=== PATIENT | female | born 1950 | race Caucasian/White ===

== ENCOUNTER → 2017-09-14 | Outpatient (CLI) | payer OTHER ==
[~2017-09-14] MED LIST: ATORVASTATIN CA40 MG PO; AUGMENTIN 875-1 EACH PO; CIPRO250 M2 PO; CIPRO500 M1 PO; DARVOCET-N 1001 EACH PO; DOXYCYCLINE 10100 MG PO; DUONEB 2.5-0.5 M3 ML INH; FIORICET 50-321 EACH PO; FLEXERIL PO; KEFLEX500 MG PO; LEVAQUIN 500 M500 M2 PO; LEVAQUIN 500 M500 MG PO; LEVAQUIN 750 M750 MG PO; LIPITOR10 MG PO; LIPITOR20 MG PO; NEURONTIN 300300 M1 PO; NEURONTIN 300300 MG PO; NORFLEX100 MG PO; PERCOCET 5-3251 EACH PO; PHENAZOPYRIDIN200 M2 PO; PHENERGAN 25 MG25 M1 PO; PHENERGAN 25 MG25 MG PO; PREDNISONE 10 M10 MG PO; PREDNISONE 20 M20 M1 PO; PRENATAL PO; PREVACID30 M1 PO; PREVACID30 MG PO; PROAIR HFA8.5 GM IH; ROBAXIN 750 MG750 M1 PO; SERTRALINE HCL50 MG PO; SIMVASTATIN; VENTOLIN HFA 1818 GM INH; VITAMIN B-12500 MCG PO; VITAMIN C + RO500 MG PO; XANAX XR1 MG PO; ZANAFLEX4 MG PO; ZOFRAN ODT4 MG SUBLING; ZOFRAN4 MG PO; ZOLOFT; ZPAK PO; [UNRECOGNIZED DRUG - OTHER]
[2017-09-14 16:31] LABS: ABSOLUTE BASOPHILS 0.1 thou/uL (0.0-0.2); ABSOLUTE EOSINOPHILS 0.4 thou/uL (0.0-0.7); ABSOLUTE MONOCYTES 0.7 thou/uL (0.0-1.2); ABSOLUTE NEUTROPHILS 7.9 thou/uL (1.6-8.1); BASOPHILS 0.5 %; EOSINOPHILS 3.2 %; HEMATOCRIT 43.1 % (37.0-47.0); LYMPHOCYTES 24.7 %; MCH 28.7 pg (26.0-34.0); MCHC 32.4 g/dL (28.0-37.0); MCV 88.6 fL (80.0-100.0); MONOCYTES 5.9 %; NUCLEATED RBCS 0 /100WBC; PLATELET COUNT* 282 thou/uL (150-400); POLYS 65.7 %; RBC 4.86 mil/uL (4.20-5.00); RDW-CV 14.2 % (10.5-14.5); WBC 12.1 thou/uL (4.0-11.0)
[2017-09-14 16:41] LABS: ALBUMIN 3.6 g/dL (3.4-5.0); CALCIUM 9.3 mg/dL (8.5-10.1); CREATININE 1.1 mg/dL (0.6-1.3); POTASSIUM 4.3 mmol/L (3.5-5.1); TOTAL BILIRUBIN 0.4 mg/dL (<0.1-1.0); TOTAL PROTEIN 7.3 g/dL (6.4-8.2)
--- NOTE | 2017-09-14 17:48 | EKG ---
[place] [address] ELECTROCARDIOGRAM REPORT Name: MIRZA NASCIMENTO Room: [facility]#: [id number] Admission: 09/14/17 Attend Phys: Angeli Thomas MD Discharge: Date of : 52 Report #: [id number] THIS REPORT FOR: //name// [facility] Test Date: 2017-09-14 Test Time: 16:16:10 Pat Name: MIRZA NASCIMENTO Department: Room: Gender: F Conformal Pad Former: : 1950 Requested By: Angeli Thomas Order Number: [id number] MD: Chapito Benitez Measurements Intervals [place] Rate: 91 P: 55 CO: 126 QRS: 37 QRSD: 92 T: 28 QT: 352 QTc: 434 Interpretive Statements Sinus arrhythmia Ventricular premature complex Compared to ECG 01/15/2016 13:05:06 Ventricular premature complex(es) now present Sinus tachycardia no longer present Electronically Signed On 09-14-2017 17:48:17 INSPECTOR SET UP AND LAY OUT by Chapito Benitez [email or web address] <ELECTRONICALLY SIGNED> By: Chapito Benitez MD, [facility] 09/14/17 1748 1616 15 Chapito Benitez MD, FAC /EPI
== END ==
LOC: M.CRD 16:02
PROVIDERS: Obstetrics & Gynecology Gynecologic Oncology
DX: Z01.818 Encounter for other preprocedural examination (principal); K44.9 Diaphragmatic hernia without obstruction or gangrene; I49.8 Other specified cardiac arrhythmias

== ENCOUNTER 2017-11-28 13:17 | Emergency (ER) | payer OTHER ==
[~2017-11-28] VITALS: Ht 157.5 cm; Wt 120.2 kg
[~2017-11-28 13:17] MED LIST changes: -LEVAQUIN 500 M500 MG PO; -LEVAQUIN 750 M750 MG PO; -PREDNISONE 20 M20 M1 PO; -VENTOLIN HFA 1818 GM INH; -ZPAK PO
[2017-11-28] MEDS ORDERED: PREDNISONE 20 M20 M1 PO (15:20)
[2017-11-28] MEDS ORDERED: ZPAK PO (15:20)
[2017-11-28] MEDS ORDERED: VENTOLIN HFA 1818 GM INH (15:20)
[2017-11-28] MEDS ORDERED: LEVAQUIN 500 M500 MG PO (15:23)
[2017-11-28 15:32] VITALS: BP 110/65
== END 2017-11-28 15:34 | disposition home or self-care (01) ==
LOC: M.ERS 13:17
DX: J40 Bronchitis, not specified as acute or chronic (principal); F41.9 Anxiety disorder, unspecified; F32.9 Major depressive disorder, single episode, unspecified; E78.5 Hyperlipidemia, unspecified; K21.9 Gastro-esophageal reflux disease without esophagitis; Z90.710 Acquired absence of both cervix and uterus; Z88.1 Allergy status to other antibiotic agents; Z87.891 Personal history of nicotine dependence

== ENCOUNTER 2017-12-01 15:54 | Inpatient (IN) | payer OTHER ==
[~2017-12-01] VITALS: Ht 154.9 cm; Wt 103.0 kg
[~2017-12-01 15:54] MED LIST changes: +LEVAQUIN 500 M500 MG PO; +PREDNISONE 20 M20 M1 PO; +VENTOLIN HFA 1818 GM INH; +ZPAK PO
[2017-12-01 16:06] VITALS: BP 166/94
[2017-12-01 16:42] LABS: ABSOLUTE LYMPHOCYTES 1.3 thou/uL (0.8-5.3); ABSOLUTE MONOCYTES 0.2 thou/uL (0.0-1.2); ABSOLUTE NEUTROPHILS 5.5 thou/uL (1.6-8.1); BASOPHILS 0.2 %; HEMATOCRIT 45.4 % (37.0-47.0); HEMOGLOBIN 15.3 gm/dL (12.0-15.0); LYMPHOCYTES 18.1 %; MCHC 33.6 g/dL (28.0-37.0); MCV 86.5 fL (80.0-100.0); MONOCYTES 2.4 %; NUCLEATED RBCS 0 /100WBC; PLATELET COUNT* 277 thou/uL (150-400); POLYS 79.3 %; RBC 5.26 mil/uL (4.20-5.00); RDW-CV 14.1 % (10.5-14.5); WBC 6.9 thou/uL (4.0-11.0)
[2017-12-01 16:51] LABS: APTT 25.9 Seconds (25.0-31.3); PROTIME 10.1 Seconds (9.20-11.50)
[2017-12-01 16:52] LABS: ANION GAP 8 mmol/L (7-16); BUN 16 mg/dL (7-18); CALCIUM 9.1 mg/dL (8.5-10.1); CHLORIDE 104 mmol/L (98-107); CO2 33 mmol/L (21-32); CREATININE 1.2 mg/dL (0.6-1.3); GLUCOSE 155 mg/dL (70-99); POTASSIUM 3.5 mmol/L (3.5-5.1); SODIUM 145 mmol/L (136-145)
[2017-12-01 17:02] LABS: ALBUMIN 3.5 g/dL (3.4-5.0); ALKALINE PHOSPHATASE 151 U/L (46-116); LIPASE 58 U/L (73-393); MAGNESIUM 2.2 mg/dL (1.8-2.4); NT-PRO BRAIN NAT PEPTIDE 551 pg/mL (<300); SGOT 21 U/L (15-37); SGPT 33 U/L (30-65); TOTAL BILIRUBIN 0.6 mg/dL (<0.1-1.0); TOTAL PROTEIN 7.6 g/dL (6.4-8.2); TROPONIN-I LEVEL <0.06 ng/mL (<0.06)
[2017-12-01 19:56] VITALS: BP 164/92
[2017-12-01 20:30] VITALS: BP 163/85
[2017-12-02 00:20] VITALS: BP 127/80
[2017-12-02 04:14] LABS: HEMATOCRIT 40.9 % (37.0-47.0); HEMOGLOBIN 13.7 gm/dL (12.0-15.0); MCH 28.9 pg (26.0-34.0); MCHC 33.5 g/dL (28.0-37.0); MCV 86.2 fL (80.0-100.0); MPV 8.2 fl. (7.2-11.1); RBC 4.75 mil/uL (4.20-5.00); RDW-CV 13.9 % (10.5-14.5); WBC 8.3 thou/uL (4.0-11.0)
[2017-12-02 04:37] LABS: CALCIUM 8.7 mg/dL (8.5-10.1); CREATININE 1.1 mg/dL (0.6-1.3); MAGNESIUM 2.3 mg/dL (1.8-2.4); POTASSIUM 3.7 mmol/L (3.5-5.1)
--- NOTE | 2017-12-02 05:15 | NUR ---
PATIENT ARRIVED TO UNIT AT 1945 FROM ER VIA CART. AMBULATED TO BED WITHOUT DIFFICULTY. ALERT AND ORIENTED. VITALS STABLE. RA. ORIENTED TO ROOM AND STAFF. PLACED ON 2L PER PATIENTS REQUEST. UP INDEPENDENTLY. EDUCATED ABOUT FALL PREVENTION. SKIN INTACT. NONPRODUCTIVE COUGH. HOURLY ROUNDS. NURSING WILL CONTINUE TO MONITOR.
[2017-12-02 08:54] VITALS: BP 139/76
[2017-12-02 16:00] VITALS: BP 119/64
--- NOTE | 2017-12-02 16:26 | NUR ---
DID NOT SEE PT.TODAY. ROOM DARK,FAN ON,ALKA PULLED ACROSS OPENING TO ROOM. PT.APPEARED TO BE SLEEPING. WILL SEE TOMORROW.
--- NOTE | 2017-12-02 16:32 | EKG ---
[place] [address] ELECTROCARDIOGRAM REPORT Name: MIRZA NASCIMENTO Room: [address] ADM IN [facility].#: [id number] Admission: 12/01/17 Attend Phys: Dwaine Stacy MD Discharge: Date of : 52 Report #: [id number] THIS REPORT FOR: //name// [facility] ED Test Date: 2017-12-01 Test Time: 16:23:37 Pat Name: MIRZA NASCIMENTO Department: Room: [facility] Gender: F Chair Mechanic: Joyce DOBBINS : 1950 Requested By: Aldair Fine Order Number: [id number] MD: Chapito Benitez Measurements Intervals [place] Rate: 79 P: 57 [place]: 131 QRS: 32 QRSD: 91 T: 19 QT: 393 QTc: 451 Interpretive Statements Sinus rhythm Baseline wander in lead(s) V2 Compared to ECG 09/14/2017 16:16:10 Sinus arrhythmia no longer present Ventricular premature complex(es) no longer present Electronically Signed On 12-02-2017 16:32:08 CDT by Chapito Benitez [email or web address] <ELECTRONICALLY SIGNED> By: Chapito Benitez MD, FAC 12/02/17 1632 1623 1623 Chapito Benitez MD, [facility] /EPI
--- NOTE | 2017-12-02 21:00 | NUR ---
ASSUMED CARES OF PT AT 0700. PT IN BED, BED IN LOW LOCKED POSITION, FALL PRECAUTIONS IN PLACE, CALL BUTTON AND PERSONAL ITEMS IN PT REACH. PT A&O X4, VSS ON 2L NC NEEDED FOR COMFORT. AFEBRILE, PERRLA, SKIN INTACT, HRRR PER AUSCULTATION, EXPIRATORY WHEEZES ON AUSCULTATION OF LUNGS. PT DENIES PAIN AT THIS TIME. UP INDEPENDENTLY. LAC IV PATENT TO FLUSH AND ABT TREATMENT. PT STATES SOLUMEDROL KEEPS HER AWAKE, DID NOT SLEEP WELL LAST NIGHT OR ABLE TO SLEEP THIS SHIFT. OCC. ANXIETY REPORTED. HOURLY ROUNDING COMPLETED. REPORT TO COTTAGE MASTER FOR CONTINUED CARES. PT PROGRESSING TOWARDS GOAL. NO COUGH NOTED THIS DAY SHIFT.
[2017-12-02 23:00] VITALS: BP 148/72
--- NOTE | 2017-12-03 04:57 | NUR ---
PATIENT HAS REMAINED ALERT AND ORIENTED X 4 THROUGHOUT THE SHIFT AND RESTING QUIETLY BUT NOT SLEEPING WELL ON HOURLY ROUNDS. PATIENT REPORTING POOR REST WITH SOLUMEDROL AND RT TREATMENTS. O2 ON AT 2L/MIN WITH SPOT SATS>92%. VITAL SIGNS STABLE. MEDS PER ORDERS. PATIENT REPORTING OVERALL FEELING BETTER. UP TO BR INDEPENDENTLY. CONTINUE TO MONITOR.
[2017-12-03 08:18] VITALS: BP 125/75
--- NOTE | 2017-12-03 11:07 | NUR ---
ASSUMED CARES OF PT AT 0700. PT IN BED, BED IN LOW LOCKED POSITION, FALL PRECAUTIONS IN PLACE, CALL BUTTON AND PERSONAL ITEMS IN PT REACH. PT A&O X4, UP INDEPENDENT, STABLE GAIT. HRRR PER AUSCULTATION, VSS ON 2L O2 NC FOR COMFORT PER PT REQUEST. PT DENIES PAIN AT THIS TIME. LUNGS ON AUSCULTATION CLEAR IN ALL LOBES EXCEPT [place] MILD WHEEZES HEARD. LAC IV PATENT TO FLUSH AND IV ABT/TOLERATED. CHEST XRAY SCHEDULED TODAY. PT COOPERATIVE, PLEASANT, TAKES MEDS WELL PO. HOURLY ROUNDING CONTINUES. WILL CONTINUE TO MONITOR PT PROGRESS AND STATUS. AFEBRILE, PERRLA, SKIN INTACT.
[2017-12-03 15:21] VITALS: BP 119/54
--- NOTE | 2017-12-03 15:45 | NUR ---
PT.UPSET. SHE SAID SHE RECEIVED A MESSAGE FROM SOMEONE THAT SAID THEY ARE AFFILIATED WITH THE HOSPITAL BUT SHE DID NOT UNDERSTAND WHO THEY WERE OR WHY THEY WOULD BE CALLING HER. LET CM LISTEN TO MESSAGE. CM COULD NOT UNDERSTAND NAME OF CO. SHE TRIED TO CALL THEM BACK BUT ARE CLOSED UNTIL WEDNESDAY. SHE SAID SHE LIVES WITH HER AND THEY TAKE CARE OF THEIR 2 Y.O.GRANDCHILD. NAY MOTHER DOES NOT LIVE WITH THEM SHE IS ON DRUGS. PT.SAID SHE IS JUST ALWAYS SCARED SOMEONE WILL TAKE THE BABY AWAY FROM THEM. SHE SAID SHE IS INDEPENDENT AT HOME. SHE AND SHARE CHORES. SHE DRIVES. SHE DOES NOT USE ANY DME. NO HX OF HH. SHE HOPES SHE DOES NOT NEED HOME O2 AT DISCHARGE.
--- NOTE | 2017-12-03 20:26 | NUR ---
BEDSIDE REPORT TO SPEECH AND HEARING CLINIC DIRECTOR FOR CONTINUED CARES. PT PROGRESSING TOWARDS GOAL. VSS ON RA, AFEBRILE. PT MAY D/C TO HOME TOMORROW. LEFT AC PATENT TO FLUSH/SALINE LOCKED. HOURLY ROUNDING AND ASSESSMENTS COMPLETED.
[2017-12-03 20:30] VITALS: BP 120/73
[2017-12-04 00:37] VITALS: BP 109/71
[2017-12-04] MEDS ORDERED: PREDNISONE 10 M10 MG PO (07:23)
[2017-12-04] MEDS ORDERED: LEVAQUIN 750 M750 MG PO (07:23)
[2017-12-04 08:00] VITALS: BP 154/77
--- NOTE | 2017-12-04 08:03 | NUR ---
ALERT AND ORIENTED X4. O2 SLEEP STUDY COMPLETED LAST NIGHT. O2 SAT ON ROOM AIR THIS AM 96%. SLIGHT WHEEZING NOTED IN LOWER LOBES. UP AD PETRA IN ROOM. DENIED NEED FOR PAIN MEDICATION. CONTINUES TO RECEIVE STERIODS AND ANTIBIODICS. CALL LIGHT WITHIN REACH.
[2017-12-04 13:02] VITALS: BP 154/77
--- NOTE | 2017-12-04 13:53 | NUR ---
ASSUMED CARE OF PATIENT AFTER MORNING REPORT. ALERT AND ORIENTED X4. ASSESSMENT COMPLETED AND CHARTED. VSS ON ROOM AIR. PATIENT HAS HAD NO COMPLAINTS OF NAUSEA AND PAIN THIS SHIFT. PATEINT HAS HAD SOME ANXIETY TODAY AND ASKED FOR XANAX, GIVEN WITH 0900 MEDS. PATEINT RECIEVED BRATHING TREATMENTS AND AOLUMEDROL ORDERED. DISCHARGED AT 1335. ALL PERSONAL BELONGINGS, PRESCRIPTIONS AND DISCHARGE INFORMATION SENT WITH PATIENT UPON DISCHARGE.
== END 2017-12-04 13:35 | disposition home or self-care (01) | DRG 189 ==
LOC: M.ERS 15:54 → M.ORTHSURG 17:19 → M.TBA-ER 17:19 → M.ORTHSURG 19:18
PROVIDERS: Family Medicine; ADMIT Internal Medicine
DX: J96.90 Respiratory failure, unspecified, unspecified whether with hypoxia or hypercapnia (principal); J44.1 Chronic obstructive pulmonary disease with (acute) exacerbation; J44.0 Chronic obstructive pulmonary disease with (acute) lower respiratory infection; J20.9 Acute bronchitis, unspecified; F32.9 Major depressive disorder, single episode, unspecified; M48.00 Spinal stenosis, site unspecified; J32.0 Chronic maxillary sinusitis; F41.9 Anxiety disorder, unspecified; E78.5 Hyperlipidemia, unspecified; K21.9 Gastro-esophageal reflux disease without esophagitis; Z90.710 Acquired absence of both cervix and uterus; Z88.2 Allergy status to sulfonamides; Z88.1 Allergy status to other antibiotic agents; Z88.8 Allergy status to other drugs, medicaments and biological substances; Z87.891 Personal history of nicotine dependence

== ENCOUNTER → 2018-02-17 | Outpatient (CLI) | payer OTHER ==
[~2018-02-17] MED LIST changes: +LEVAQUIN 750 M750 MG PO
== END ==
LOC: M.RAD 06:59
DX: Z12.31 Encounter for screening mammogram for malignant neoplasm of breast (principal)

== ENCOUNTER 2018-08-28 07:49 | Emergency (ER) | payer OTHER ==
[~2018-08-28] VITALS: Ht 154.9 cm; Wt 104.3 kg
[2018-08-28] MEDS ORDERED: [UNRECOGNIZED DRUG - REMARK] (08:05)
[2018-08-28] MEDS ORDERED: KEFLEX500 M1 PO (08:22)
[2018-08-28 08:29] VITALS: BP 130/61
== END 2018-08-28 08:31 | disposition home or self-care (01) ==
LOC: M.ERS 07:49
DX: L03.116 Cellulitis of left lower limb (principal); M48.00 Spinal stenosis, site unspecified; F32.9 Major depressive disorder, single episode, unspecified; F41.9 Anxiety disorder, unspecified; E78.5 Hyperlipidemia, unspecified; K21.9 Gastro-esophageal reflux disease without esophagitis; Z90.710 Acquired absence of both cervix and uterus; Z88.1 Allergy status to other antibiotic agents; Z98.890 Other specified postprocedural states; Z90.89 Acquired absence of other organs; Z88.8 Allergy status to other drugs, medicaments and biological substances; Z88.2 Allergy status to sulfonamides; Z87.891 Personal history of nicotine dependence

== ENCOUNTER 2018-09-30 06:36 | Emergency (ER) | payer OTHER ==
[~2018-09-30] VITALS: Ht 154.9 cm; Wt 104.3 kg
[~2018-09-30 06:36] MED LIST changes: +KEFLEX500 M1 PO; +[UNRECOGNIZED DRUG - REMARK]
[2018-09-30] MEDS ORDERED: OXYCODONE HCL 55 MG PO (06:56)
[2018-09-30 06:57] LABS: ABSOLUTE BASOPHILS 0.1 thou/uL (0.0-0.2); ABSOLUTE EOSINOPHILS 0.2 thou/uL (0.0-0.7); ABSOLUTE LYMPHOCYTES 2.7 thou/uL (0.8-5.3); ABSOLUTE MONOCYTES 0.5 thou/uL (0.0-1.2); ABSOLUTE NEUTROPHILS 3.8 thou/uL (1.6-8.1); BASOPHILS 0.7 %; EOSINOPHILS 2.8 %; HEMATOCRIT 42.9 % (37.0-47.0); HEMOGLOBIN 14.3 gm/dL (12.0-15.0); LYMPHOCYTES 37.4 %; MCH 29.7 pg (26.0-34.0); MCHC 33.3 g/dL (28.0-37.0); MCV 89.1 fL (80.0-100.0); MONOCYTES 6.9 %; MPV 7.8 fl. (7.2-11.1); NUCLEATED RBCS 0 /100WBC; PLATELET COUNT* 257 thou/uL (150-400); POLYS 52.2 %; RBC 4.81 mil/uL (4.20-5.00); RDW-CV 13.5 % (10.5-14.5); WBC 7.3 thou/uL (4.0-11.0)
[2018-09-30 07:04] LABS: ANION GAP 4 mmol/L (7-16); BUN 16 mg/dL (7-18); CALCIUM 8.8 mg/dL (8.5-10.1); CHLORIDE 105 mmol/L (98-107); CO2 34 mmol/L (21-32); CREATININE 1.2 mg/dL (0.6-1.3); GLUCOSE 89 mg/dL (70-99); POTASSIUM 3.8 mmol/L (3.5-5.1); SODIUM 143 mmol/L (136-145)
[2018-09-30 07:05] LABS: APTT 26.1 Seconds (25.0-31.3); PROTIME 9.9 Seconds (9.20-11.50)
[2018-09-30 07:15] LABS: ALBUMIN 3.3 g/dL (3.4-5.0); ALKALINE PHOSPHATASE 108 U/L (46-116); NT-PRO BRAIN NAT PEPTIDE 85 pg/mL (<300); SGOT 20 U/L (15-37); SGPT 24 U/L (30-65); TOTAL BILIRUBIN 0.6 mg/dL (<0.1-1.0); TOTAL PROTEIN 6.7 g/dL (6.4-8.2); TROPONIN-I LEVEL <0.06 ng/mL (<0.06)
[2018-09-30] MEDS ORDERED: DOXYCYCLINE 10100 MG PO (07:57)
[2018-09-30] MEDS ORDERED: ANTIVERT25 MG PO (07:57)
[2018-09-30 08:10] VITALS: BP 134/89
--- NOTE | 2018-09-30 09:41 | EKG ---
[place] [address] ELECTROCARDIOGRAM REPORT Name: MIRZA NASCIMENTO Room: [facility]#: [id number] Admission: 09/30/18 Attend Phys: Discharge: 09/30/18 Date of : 52 Report #: [id number] THIS REPORT FOR: //name// [facility] ED Test Date: 2018-09-30 Test Time: 07:19:12 Pat Name: MIRZA NASCIMENTO Department: Room: Gender: F Sash Finisher: FRANK : 1950 Requested By: Aldair Fine Order Number: [id number] MD: Jefe Manzanares Measurements Intervals [place] Rate: 82 P: 50 MD: 148 QRS: 35 QRSD: 79 T: 11 QT: 375 QTc: 438 Interpretive Statements Sinus rhythm Low voltage, precordial leads Borderline T abnormalities, anterior leads Compared to ECG 12/01/2017 16:23:37 no change Electronically Signed On 09-30-2018 9:41:36 CHIEF EXECUTIVE by Jefe Manzanares [email or web address] <ELECTRONICALLY SIGNED> By: Jefe Manzanares MD, [facility] 09/30/18 0941 8 8 Jefe Manzanares MD, [facility] /EPI
== END 2018-09-30 08:11 | disposition home or self-care (01) ==
LOC: M.ERS 06:36
PROVIDERS: Family Medicine
DX: H81.12 Benign paroxysmal vertigo, left ear (principal); M48.00 Spinal stenosis, site unspecified; F32.9 Major depressive disorder, single episode, unspecified; F41.9 Anxiety disorder, unspecified; E78.5 Hyperlipidemia, unspecified; K21.9 Gastro-esophageal reflux disease without esophagitis; Z90.710 Acquired absence of both cervix and uterus; Z98.890 Other specified postprocedural states; Z87.891 Personal history of nicotine dependence; Z88.1 Allergy status to other antibiotic agents; Z88.8 Allergy status to other drugs, medicaments and biological substances; Z88.2 Allergy status to sulfonamides; Z90.89 Acquired absence of other organs

== ENCOUNTER → 2019-02-22 | Outpatient (CLI) | payer OTHER ==
[~2019-02-22] MED LIST changes: +ANTIVERT25 MG PO; +OXYCODONE HCL 55 MG PO
== END ==
LOC: M.RAD 15:00
DX: Z12.31 Encounter for screening mammogram for malignant neoplasm of breast (principal)

== ENCOUNTER → 2020-07-05 | Outpatient (CLI) | payer MEDICARE | LOC: M.RAD 16:05 | PROVIDERS: ATTEND Student in an Organized Health Care Education/Training Program | DX: Z12.31 Encounter for screening mammogram for malignant neoplasm of breast (principal) ==

== ENCOUNTER → 2021-07-22 | Outpatient (CLI) | payer MEDICARE | LOC: M.RAD 15:54 | PROVIDERS: ATTEND Student in an Organized Health Care Education/Training Program | DX: Z12.31 Encounter for screening mammogram for malignant neoplasm of breast (principal) ==